=== PATIENT | female | born 1965 | race Caucasian/White ===

== ENCOUNTER 2021-12-20 12:00 | Inpatient (IN) ==
[2021-12-20] MEDS ORDERED: 0.9 % Sodium Chloride 1,000 ML IVC SCH (15:45)
[2021-12-20] MEDS ORDERED: Pantoprazole 40 MG VIAL IVP SCH (16:00)
[2021-12-20 17:42] LABS: Basophils # 0.1 K/mcL (0.0-0.2); Basophils % 1.1 %; Eosinophils # 0.2 K/mcL (0.0-0.6); Eosinophils % 1.9 %; Hematocrit 37.5 % (35.3-44.9); Hemoglobin 12.2 g/dL (11.5-15.4); Immature Granulocytes % 0.3 % (0-4); Lymphocytes # 1.5 K/mcL (0.6-4.6); Lymphocytes % 16.1 %; Mean Corpuscular HGB Conc 32.5 g/dL (31.6-35.5); Mean Corpuscular Hemoglobin 28.5 pg (28.0-33.3); Mean Corpuscular Volume 87.6 fL (83.0-100.0); Mean Platelet Volume 9.3 fL (9.4-12.4); Monocytes # 0.7 K/mcL (0.0-1.3); Monocytes % 7.8 %; Neutrophils # 6.6 K/mcL (1.6-8.9); Platelet Count 350 K/mcL (140-400); Red Blood Count 4.28 M/mcL (3.82-4.97); Red Cell Distribution Width 12.5 % (11.5-14.5); Segmented Neutrophils % 72.8 %; White Blood Count 9.1 K/mcL (4.3-11.1)
[2021-12-20 17:49] LABS: Calcium 9.3 mg/dL (8.6-10.3); Potassium 5.4 mEq/L (3.5-5.1)
[2021-12-20] MEDS: CeFAZolin 2,000 MG/120 ML BAG IVPB SCH (18:17)
[2021-12-20] MEDS: Ondansetron 4 MG/2 ML VIAL IVP PRN (18:17)
[2021-12-21] MEDS: CeFAZolin 2,000 MG/120 ML BAG IVPB SCH (00:30)
[2021-12-21] MEDS: Ondansetron 4 MG/2 ML VIAL IVP PRN (01:35)
[2021-12-21] MEDS ORDERED: Acetaminophen 325 MG TABLET PO PRN ×2 (01:53→09:25)
[2021-12-21] MEDS ORDERED: Ketorolac 30 MG/ML VIAL IVP SCH (02:00)
[2021-12-21] MEDS ORDERED: Lidocaine Jelly 11 ml Syringe ONE (07:18)
[2021-12-21] MEDS ORDERED: *HR* Succinylcholine 200 MG/10 ML VIAL IVP ONE (07:32)
[2021-12-21] MEDS ORDERED: *HR* Rocuronium Bromide 50 MG/5 ML VIAL ONE (07:32)
[2021-12-21] MEDS ORDERED: *HR* Propofol 200 MG/20 ML VIAL IVP ONE (07:32)
[2021-12-21] MEDS ORDERED: Ondansetron 4 MG/2 ML VIAL ONE (07:32)
[2021-12-21] MEDS ORDERED: Lidocaine -MPF 2% 5 ML VIAL ONE (07:32)
[2021-12-21] MEDS ORDERED: *HR* FentaNYL (PF) 100 MCG/2 ML VIAL ONE (07:32)
[2021-12-21] MEDS ORDERED: *HR* Midazolam HCl 2 MG/2 ML VIAL ONE (07:32)
[2021-12-21] MEDS ORDERED: Lidocaine HCL 4 ML Topical Solution (Laryng-O-Jet Kit Sterile Pak) TP ONE (07:32)
[2021-12-21] MEDS ORDERED: Scopolamine Patch 1.5 MG PATCH.TD72 TD ONE (07:55)
[2021-12-21] MEDS ORDERED: Scopolamine Patch 1.5 MG PATCH.TD72 ONE (07:57)
[2021-12-21] MEDS ORDERED: Piperacillin/Tazobactam 3.375 GM in 0.9 % Sodium Chloride Mini Bag 100 ML IVPB SCH (08:00)
[2021-12-21] MEDS: *HR* HYDROmorphone PF 0.5 MG/0.5 ML SYRINGE IVP PRN ×2 (09:18→09:29)
[2021-12-21] MEDS ORDERED: Ondansetron 4 MG/2 ML VIAL IVP PRN (10:13)
[2021-12-21] MEDS: 0.9 % Sodium Chloride 1,000 ML IVC SCH (11:01)
[2021-12-21] MEDS: Piperacillin/Tazobactam 3.375 GM in 0.9 % Sodium Chloride Mini Bag 100 ML IVPB SCH (15:45)
[2021-12-21] MEDS: tiZANidine 4 MG TABLET PO SCH ×2 (15:45→19:43)
[2021-12-21] MEDS: Fluticasone Propionate Nasal 50 MCG/SPRAY BOTTLE NS SCH (19:43)
[2021-12-21] MEDS: Azelastine 0.1% Nasal Spray 30 ML BOTTLE NS SCH (19:44)
[2021-12-21] MEDS ORDERED: Gabapentin 300 MG CAPSULE PO SCH (21:00)
[2021-12-22] MEDS: Piperacillin/Tazobactam 3.375 GM in 0.9 % Sodium Chloride Mini Bag 100 ML IVPB SCH ×2 (00:13→08:10)
[2021-12-22 03:42] VITALS: O2SAT 97
[2021-12-22] MEDS: 0.9 % Sodium Chloride 1,000 ML IVC SCH (03:49)
[2021-12-22] MEDS: Azelastine 0.1% Nasal Spray 30 ML BOTTLE NS SCH (08:11)
[2021-12-22] MEDS: Fluticasone Propionate Nasal 50 MCG/SPRAY BOTTLE NS SCH (08:13)
[2021-12-22] MEDS: tiZANidine 4 MG TABLET PO SCH (08:13)
[2021-12-22] MEDS ORDERED: lisinopriL 20 MG TABLET PO SCH (09:00)
[2021-12-22] MEDS ORDERED: Loratadine 10 MG TABLET PO SCH (09:00)
[2021-12-22] MEDS ORDERED: Pantoprazole 40 MG VIAL IVP SCH (09:00)
[2021-12-22] MEDS ORDERED: Cholecalciferol (D-3) 1,000 UNIT (25MCG) TABLET PO SCH (09:00)
[2021-12-22 10:30] VITALS: BP 78/48; PULSE 81; TEMP 98.3
[2021-12-22] MEDS ORDERED: *HR* HYDROcodone/Acet 5/325 mg TABLET PO PRN (12:07)
[2021-12-22] MEDS ORDERED: cephALEXin 500 MG CAPSULE PO SCH (13:00)
[2021-12-24] MEDS ORDERED: Scopolamine Patch 1.5 MG PATCH.TD72 TD SCH ×2 (09:00)
== END 2021-12-22 14:30 | disposition home or self-care (01) | DRG 348 ==
LOC: 3ANU
PROVIDERS: ADMIT Surgery; ATTEND Surgery